=== PATIENT | male | born 1955 | race Caucasian/White ===

== ENCOUNTER 2019-10-19 13:35 | Emergency (ER) | payer MEDICARE, MEDICAID ==
[~2019-10-19] VITALS: Ht 182.9 cm; Wt 74.8 kg
--- NOTE | 2019-10-19 13:45 | NUR ---
PT BIB DAUGHTER C/O BACK PAIN X 1 WEEK. PT ENDORSES 5/10 PAIN. -NVD, -HEADACHE. PT AAOX4, VSS, BREATHING EVEN AND UNLABORED ON ROOM AIR W/ NAD. PT CONNECTED TO THE MONITOR AND POX.
[2019-10-19] MEDS ORDERED: LINA290C PO (13:55)
[2019-10-19] MEDS ORDERED: IBUP-1955 PO (13:55)
[2019-10-19] MEDS ORDERED: BISA5TAB10 PO (13:55)
[2019-10-19] MEDS ORDERED: SENN-168 PO (13:55)
[2019-10-19] MEDS ORDERED: ATOR40TA PO (13:55)
[2019-10-19] MEDS ORDERED: BACL10TA PO (13:55)
[2019-10-19] MEDS ORDERED: ASPI-1169 PO (13:55)
[2019-10-19] MEDS ORDERED: ICOS1CAP PO (13:55)
[2019-10-19] MEDS ORDERED: MECL-102 PO (13:55)
[2019-10-19] MEDS ORDERED: LOSA25TA27 PO (13:55)
[2019-10-19] MEDS ORDERED: DOCU-141 PO (13:55)
[2019-10-19] MEDS ORDERED: OMEP40CA13 PO (13:55)
[2019-10-19] MEDS ORDERED: MEMA28CA PO (13:55)
[2019-10-19] MEDS ORDERED: ESCI10TA PO (13:55)
--- NOTE | 2019-10-19 14:08 | NUR ---
DR YOUNG AT BEDSIDE FOR EVAL
--- NOTE | 2019-10-19 14:29 | NUR ---
IV LINE ESTABLISHED RAC 18G. BLOOD DRAWN AND SENT TO LAB
[2019-10-19 14:32] LABS: BASOPHILS % (AUTO) 0.6 % (0.0-2.0); EOSINOPHILS % (AUTO) 3.5 % (0.0-6.0); HEMATOCRIT 40 % (39-51); HEMOGLOBIN 13.7 g/dL (13.5-17.5); LYMPHOCYTES # (AUTO) 1.8 /CMM (0.8-4.8); LYMPHOCYTES % (AUTO) 28.2 % (20.0-44.0); MEAN CORPUSCULAR HGB CONC 34 g/dl (31.0-36.0); MEAN CORPUSCULAR VOLUME 100 fL (80-96); MONOCYTES # (AUTO) 0.5 /CMM (0.1-1.30); MONOCYTES % (AUTO) 7.5 % (2.0-12.0); NEUTROPHILS # (AUTO) 3.9 /CMM (1.8-8.9); NEUTROPHILS % (AUTO) 60.2 % (43.0-81.0); PLATELET COUNT (AUTO) 170 /CMM (150-450); RED BLOOD CELL COUNT(AUTO) 3.99 MIL/uL (4.5-6.0); WHITE BLOOD COUNT (AUTO) 6.5 K/uL (4.3-11.0)
[2019-10-19 14:41] LABS: CALCIUM, SERUM 9.1 mg/dL (8.5-10.1); CREATININE 0.7 mg/dL (0.6-1.3); POTASSIUM 4.2 mmol/L (3.5-5.1)
[2019-10-19 14:53] LABS: ALBUMIN 3.8 g/dL (3.4-5.0); BILIRUBIN,DIRECT 0.1 mg/dL (0.0-0.2); BILIRUBIN,TOTAL 0.3 mg/dL (0.2-1.0)
[2019-10-19] MEDS ORDERED: IV NS 0.9% 250 ML IV ONE (14:54)
[2019-10-19] MEDS ORDERED: CT SWABBABLE VALVE TRANS SET 1 EA INFUS.SET MC ONE (14:54)
[2019-10-19] MEDS ORDERED: IOHEXOL-300 100 ML VIAL IV ONE (14:54)
--- NOTE | 2019-10-19 14:57 | NUR ---
PT TAKEN TO CT
--- NOTE | 2019-10-19 16:30 | NUR ---
Patient discharged to home in stable condition. Written and verbal after care instructions given. Patient verbalizes understanding of instruction.
[2019-10-19 16:31] VITALS: BP 127/84
== END 2019-10-19 16:32 | disposition home or self-care (01) ==
LOC: ER 13:45
DX: K64.4 Residual hemorrhoidal skin tags (principal); M54.5 Low back pain; G89.29 Other chronic pain; I10 Essential (primary) hypertension; E78.5 Hyperlipidemia, unspecified; Z79.82 Long term (current) use of aspirin; Z79.899 Other long term (current) drug therapy
CPT/HCPCS: 36415; 72132; 74177; 80048; 80076; 83690; 85025; 85730; 99284; J7050; Q9967

== ENCOUNTER 2019-12-07 10:36 | Emergency (ER) | payer MEDICARE, MEDICAID ==
[~2019-12-07] VITALS: Ht 182.9 cm; Wt 73.9 kg
[~2019-12-07 10:36] MED LIST: ASPI-1169 PO; ATOR40TA PO; BACL10TA PO; BISA5TAB10 PO; DOCU-141 PO; ESCI10TA PO; IBUP-1955 PO; ICOS1CAP PO; LINA290C PO; LOSA25TA27 PO; MECL-159 PO; MEMA28CA PO; OMEP40CA13 PO; SENN-261 PO
--- NOTE | 2019-12-07 11:54 | NUR ---
IV LINE STARTED BLOOD DRAWN AND SENT TO LAB.
--- NOTE | 2019-12-07 11:59 | NUR ---
DR FERNANDES AT BEDSIDE FOR EVAL.
[2019-12-07 13:16] LABS: BASOPHILS % (AUTO) 0.2 % (0.0-2.0); EOSINOPHILS % (AUTO) 1.1 % (0.0-6.0); HEMATOCRIT 41 % (39-51); HEMOGLOBIN 14.1 g/dL (13.5-17.5); LYMPHOCYTES # (AUTO) 1.5 /CMM (0.8-4.8); LYMPHOCYTES % (AUTO) 17.2 % (20.0-44.0); MEAN CORPUSCULAR HGB CONC 34 g/dl (31.0-36.0); MEAN CORPUSCULAR VOLUME 99 fL (80-96); MONOCYTES # (AUTO) 0.6 /CMM (0.1-1.30); MONOCYTES % (AUTO) 6.9 % (2.0-12.0); NEUTROPHILS # (AUTO) 6.6 /CMM (1.8-8.9); NEUTROPHILS % (AUTO) 74.6 % (43.0-81.0); PLATELET COUNT (AUTO) 149 /CMM (150-450); RED BLOOD CELL COUNT(AUTO) 4.17 MIL/uL (4.5-6.0); WHITE BLOOD COUNT (AUTO) 8.9 K/uL (4.3-11.0)
[2019-12-07 13:19] LABS: CREATININE 0.9 mg/dL (0.6-1.3)
[2019-12-07] MEDS ORDERED: IV NS 0.9% 250 ML IV ONE (13:34)
[2019-12-07] MEDS ORDERED: CT SWABBABLE VALVE TRANS SET 1 EA INFUS.SET MC ONE (13:34)
[2019-12-07] MEDS ORDERED: IOHEXOL-300 100 ML VIAL IV ONE (13:34)
--- NOTE | 2019-12-07 13:36 | NUR ---
PT TO RADIOLOGY FOR ABDOMINAL CT SCAN VIA [facility].
--- NOTE | 2019-12-07 15:29 | NUR ---
Patient discharged to home in stable condition. Written and verbal after care instructions given. Patient verbalizes understanding of instruction.IV removed. Catheter intact and site benign. Pressure and 4x4 applied to site. No bleeding noted.
[2019-12-07 15:30] VITALS: BP 136/84
== END 2019-12-07 15:30 | disposition home or self-care (01) ==
LOC: ER 10:40
DX: K62.89 Other specified diseases of anus and rectum (principal); I10 Essential (primary) hypertension; E78.5 Hyperlipidemia, unspecified; Z79.899 Other long term (current) drug therapy; Z79.82 Long term (current) use of aspirin
CPT/HCPCS: 36415; 74177; 80048; 85025; 99284; J7050; Q9967

== ENCOUNTER 2021-10-08 09:08 | Inpatient (IN) | payer MEDICARE, OTHER ==
[~2021-10-08] VITALS: Ht 172.7 cm; Wt 71.7 kg
[~2021-10-08 09:08] MED LIST changes: -OMEP40CA13 PO; +OMEP40CA21 PO
--- NOTE | 2021-10-08 09:08 | NUR ---
PT BIB SON C/O R FACIAL NUMBNESS AND SLURRING OF SPEECH STARTED 2 DAYS AGO. PT IS AAOX4, NOT IN RESPIRATORY DISTRESS, HOOKED TO RETAIL CUSTOMER SERVICE REPRESENTATIVE, KEPT RESTED AND COMFORTABLE. WILL CONTINUE TO MONITOR.
--- NOTE | 2021-10-08 09:27 | NUR ---
IV LINE ESTABLISHED BLOOD DRAWN AND SENT TO LAB.
--- NOTE | 2021-10-08 09:37 | NUR ---
PT IS WHEELED TO CT SCAN.
[2021-10-08 09:45] LABS: BASOPHILS % (AUTO) 0.6 % (0.0-2.0); EOSINOPHILS % (AUTO) 5.1 % (0.0-6.0); HEMATOCRIT 42 % (39-51); HEMOGLOBIN 14.5 g/dL (13.5-17.5); LYMPHOCYTES # (AUTO) 1.8 K/uL (0.8-4.8); LYMPHOCYTES % (AUTO) 36.5 % (20.0-44.0); MEAN CORPUSCULAR HGB CONC 34 g/dl (31.0-36.0); MEAN CORPUSCULAR VOLUME 102 fL (80-96); MONOCYTES # (AUTO) 0.4 K/uL (0.1-1.30); NEUTROPHILS # (AUTO) 2.4 K/uL (1.8-8.9); NEUTROPHILS % (AUTO) 48.8 % (43.0-81.0); PLATELET COUNT (AUTO) 159 K/uL (150-450); RED BLOOD CELL COUNT(AUTO) 4.15 MIL/uL (4.5-6.0); WHITE BLOOD COUNT (AUTO) 4.9 K/uL (4.3-11.0)
--- NOTE | 2021-10-08 09:48 | NUR ---
COVID SWAB DONE AND SENT TO LAB
[2021-10-08] MEDS ORDERED: AMLO-213 PO (10:14)
[2021-10-08] MEDS ORDERED: LOSA1TAB36 PO (10:14)
[2021-10-08] MEDS ORDERED: METO25TA4 PO (10:14)
--- NOTE | 2021-10-08 10:21 | NUR ---
CALLED NURSING NIRANJAN EDWARDS PT BED. WAS NOTIFIED WE WILL BE CALLED LATER WITH TELE BED.
[2021-10-08 10:22] LABS: CALCIUM, SERUM 9.1 mg/dL (8.5-10.1); CARBON DIOXIDE 29 mmol/L (21-32); CHLORIDE 104 mmol/L (98-107); CREATININE 0.8 mg/dL (0.6-1.3); GLUCOSE 113 mg/dL (74-106); POTASSIUM 3.8 mmol/L (3.5-5.1); SODIUM SERUM 143 mmol/L (136-145); UREA NITROGEN, BLOOD 13 mg/dL (7-18)
[2021-10-08 10:28] LABS: ALANINE AMINOTRANSFERASE 32 U/L (12-78); ALBUMIN 3.9 g/dL (3.4-5.0); ALKALINE PHOSPHATASE 66 U/L (46-116); ASPARTATE AMINOTRANSFERASE 28 U/L (15-37); BILIRUBIN,DIRECT 0.1 mg/dL (0.0-0.2); BILIRUBIN,TOTAL 0.5 mg/dL (0.2-1.0); TOTAL PROTEIN, SERUM 7.4 g/dL (6.4-8.2)
[2021-10-08] MEDS ORDERED: ASPIRIN 81 MG TAB.CHEW PO ONE (10:30)
--- NOTE | 2021-10-08 10:30 | NUR ---
PER PT SON PT TOOK ASPIRIN LAST NIGHT.
--- NOTE | 2021-10-08 10:31 | NUR ---
PAGED [facility].
[2021-10-08 10:36] LABS: THYROID STIMULATING HORMONE 2.521 uIU/mL (0.358-3.74)
--- NOTE | 2021-10-08 11:58 | NUR ---
REPORT GIVEN TO CHARLENE COLLINS.
[2021-10-08 13:30] VITALS: BP 143/81
--- NOTE | 2021-10-08 13:30 | NUR ---
FREELANCE COPYWRITER NOTE PT IN ROOM. ORIENTED TO HOSPITAL AND CALL LIGHT GIVEN. EDUCATION GIVEN. A/O X3 AND ICELANDIC SPEAKING. NO COMPLAINT OF PAIN OR NAUSEA. FARMER VEGETABLE PRESENT. NO EDEMA PRESENT.SELF AMBULATORY WITH BATHROOM PRIVILEGES. IV PRESENT ON R FA 20 G AND FLUSHES WELL. SKIN INTACT. LABS AND ORDERS REVIEWED. SAFETY MEASURES IN PLACE. SIDE RAILS RAISED. BED LOWERED. CALL LIGHT WITHIN REACH. WILL CONTINUE TO MONITOR.
[2021-10-08 16:00] VITALS: BP 124/65
--- NOTE | 2021-10-08 18:38 | NUR ---
RN CLOSING NOTE PT RESTING IN BED ASLEEP. AROUSES TO NAME. A/O X3 AND GHANAIAN SPEAKING. NO COMPLAINT OF PAIN OR NAUSEA. PROVIDER NETWORK MANAGER PRESENT. NO EDEMA PRESENT.SELF AMBULATORY WITH BATHROOM PRIVILEGES. IV PRESENT ON R FA 20 G AND FLUSHES WELL. SKIN INTACT. LABS AND ORDERS REVIEWED. SAFETY MEASURES IN PLACE. SIDE RAILS RAISED. BED LOWERED. CALL LIGHT WITHIN REACH. WILL CONTINUE TO MONITOR.
[2021-10-08 20:10] VITALS: BP 169/74
[2021-10-08] MEDS ORDERED: hydrALAZINE HCL 25 MG TABLET PO PRN (20:30)
--- NOTE | 2021-10-08 20:30 | NUR ---
MERRY GO ROUND ATTENDANT NOTES PATIENT BP 169/74 ON RECHECK. MESSAGED DOCTOR MARTA DILL AND SHE ORDERED HYDRALAZINE 25MG PO Q8 FOR SBP OVER 160. READ BACK ORDER. DOCTOR CONFIRMED. WILL FOLLOW THROUGH ORDER.
--- NOTE | 2021-10-08 21:08 | NUR ---
HOME ADVISOR NOTE PATIENT REQUESTING SLEEPING MEDICATION. MESSAGED DOCTOR ANIYAH. DOCTOR ORDERED AMBIEN 5MG PO HS PRN. READBACK ORDER. WILL FOLLOW THROUGH ORDER.
[2021-10-08] MEDS: ZOLPIDEM TARTRATE 5 MG TABLET PO PRN (21:29)
[2021-10-08] MEDS ORDERED: ZOLPIDEM TARTRATE 5 MG TABLET PO PRN (21:30)
[2021-10-08 23:48] VITALS: BP 128/55
--- NOTE | 2021-10-09 | NUR ---
ARTIFICIAL FLOWERS STARCHER NOTE PATIENT BP WENT DOWN AT 151/76 AND HR-64 AFTER PO APRESOLINE. WILL CONTINUE TO MONITOR.
[2021-10-09 04:05] VITALS: BP 134/67
--- NOTE | 2021-10-09 07:22 | NUR ---
MOOSE HUNTER CLOSING PATIENT IN BED. A/OX4. AMBULATORY. NO S/S OF APPARENT DISTRESS ON ROOM AIR. DENIES PAIN. TELE MONITOR READING NSR. ALL NEEDS ATTENDED. ALL SCHEDULED MEDICATION ADMINISTERED. NO IV FLUIDS RUNNING AT THIS TIME. NIHSS SCORE=0 ON MY SHIFT. SAFETY KEPT IN PLACE THE WHOLE SHIFT. REPORT GIVEN TO DENNIS FOR THE CONTINUITY OF CARE.
--- NOTE | 2021-10-09 08:00 | NUR ---
RN OPENING NOTE A/O X3 AND SWEDISH SPEAKING. NO COMPLAINT OF PAIN OR NAUSEA. EDUCATION MANAGER PRESENT. NO EDEMA PRESENT.SELF AMBULATORY WITH BATHROOM PRIVILEGES. IV PRESENT ON R FA 20 G AND FLUSHES WELL. SKIN INTACT. LABS AND ORDERS REVIEWED. SAFETY MEASURES IN PLACE. SIDE RAILS RAISED. BED LOWERED. CALL LIGHT WITHIN REACH. WILL CONTINUE TO MONITOR.
[2021-10-09 08:53] VITALS: BP 144/84
--- NOTE | 2021-10-09 09:27 | NUR ---
RN NOTE PT TOOK OFF LEADS, STATING THAT HE IS OKAY. EDUCATED PT ON CARDIAC MONITORING AND ITS IMPORTANCE. PT STILL REFUSED LEADS. WILL CONTINUE TO MONITOR.
[2021-10-09] MEDS ORDERED: BISACODYL (5 MG) 5 MG TABLET.DR PO PRN (15:30)
[2021-10-09] MEDS ORDERED: MECLIZINE HCL 25 MG TABLET PO PRN (15:30)
[2021-10-09] MEDS ORDERED: BACLOFEN (10 MG) 10 MG TABLET PO PRN (15:30)
[2021-10-09 16:00] VITALS: BP 125/75
[2021-10-09] MEDS: MEMANTINE HCL 5 MG TABLET PO SCH (16:23)
[2021-10-09] MEDS: DOCUSATE SODIUM 100 MG CAPSULE PO SCH (16:23)
[2021-10-09] MEDS: ATORVASTATIN 10 MG TABLET PO SCH ×2 (16:23→21:59)
[2021-10-09] MEDS: ASPIRIN EC 81 MG TABLET.DR PO SCH (16:25)
[2021-10-09] MEDS: CLOPIDOGREL BISULFATE 75 MG TABLET PO SCH (16:25)
--- NOTE | 2021-10-09 19:49 | NUR ---
MS RN OPENING PATIENT WAS IN THE ROOM, A/OX4. AMBULATORY. NO S/S OF APPARENT DISTRESS ON ROOM AIR. DENIES PAIN AT THIS TIME. PATIENT ABLE TO MAKE NEEDS KNOWN. PATIENT SPECIFICALLY REQUESTED NOT BE BOTHERED AT MIDNIGHT. SAFETY IN PLACE. WILL CONTINUE WITH PLAN OF CARE.
[2021-10-09 20:00] VITALS: BP 132/70
[2021-10-09] MEDS ORDERED: ATORVASTATIN 40 MG TABLET PO SCH (22:00)
[2021-10-09] MEDS ORDERED: SENNOSIDES 8.6 MG TABLET PO SCH (22:00)
[2021-10-09] MEDS: ZOLPIDEM TARTRATE 5 MG TABLET PO PRN (22:00)
--- NOTE | 2021-10-10 06:35 | NUR ---
MS RN NOTE PATIENT IN BED. A/OX4. AMBULATING WITH STEADY GAIT. NO S/S OF APPARENT DISTRESS. NO C/O PAIN AT THIS TIME. PATIENT ABLE TO MAKE NEEDS KNOWN. ALL NEEDS ATTENDED. ALL SCHEDULED MEDICATION ADMINISTERED. NIHSS SCORE= 0. NO SIGNIFICANT CHANGE SINCE LAST ENDORSEMENT. WILL ENDORSE TO MORNING SHIFT RN FOR CONTINUITY OF CARE.
--- NOTE | 2021-10-10 07:30 | NUR ---
RN OPENING NOTE RECEIVED PATIENT ASLEEP IN BED, EASY TO AROUSE. ALERT AND ORIENTED X 4, GUINEAN SPEAKING. NO S/SX OF DISTRESS NOTED. NO SOB. BREATHING IS EVEN AND UNLABORED. IV ACCESS RAC#20 PATENT AND INTACT. SAFETY PRECAUTIONS IN PLACE; BED IN LOW POSITION AND LOCKED, SIDE RAILS UP X2, CALL LIGHT WITHIN REACH. WILL CONTINUE TO MONITOR PATIENT.
[2021-10-10 08:00] VITALS: BP 142/74
[2021-10-10] MEDS: MEMANTINE HCL 5 MG TABLET PO SCH (08:31)
[2021-10-10] MEDS: DOCUSATE SODIUM 100 MG CAPSULE PO SCH (08:31)
[2021-10-10] MEDS: CLOPIDOGREL BISULFATE 75 MG TABLET PO SCH (08:32)
[2021-10-10 08:33] VITALS: BP 142/74
[2021-10-10] MEDS: ASPIRIN EC 81 MG TABLET.DR PO SCH (08:33)
[2021-10-10] MEDS ORDERED: AMLODIPINE BESYLATE 10 MG TABLET PO SCH (09:00)
[2021-10-10] MEDS ORDERED: ESCITALOPRAM OXALATE (10 MG) 10 MG TABLET PO SCH (09:00)
[2021-10-10] MEDS ORDERED: ASPIRIN 81 MG TAB.CHEW PO SCH (09:00)
[2021-10-10] MEDS ORDERED: METOPROLOL SUCCINATE 25 MG TAB.SR.24H PO SCH (09:00)
[2021-10-10] MEDS ORDERED: LOSARTAN/HCTZ 50-12.5MG/ 1 EA TABLET PO SCH (09:00)
--- NOTE | 2021-10-10 09:16 | NUR ---
MS RN NOTE PT IS INSISTING ON REMOVING IV ACCESS AND INSISTS ON GOING HOME. IV ACCESS REMOVED. SPOKE WITH DAUGHTER ANKUSH AND EXPLAINED THE DOCTOR WILL BE IN TODAY TO SPEAK TO PATIENT, HOWEVER TIME IS UNKNOWN. SENT MESSAGE TO DR. GUS KING. CHARGE NURSE, HOMERO MADE AWARE.
--- NOTE | 2021-10-10 10:20 | NUR ---
MS RN NOTE PATIENT LEFT AMA AT THIS TIME. EXPLAINED TO PATIENT THE RISKS VS BENEFITS OF LEAVING AMA AND VERBALIZED UNDERSTANDING. PT SIGNED AMA FORM. DR. GUS KING AND CHARGE NURSE, HOMERO NOTIFIED AND AWARE. IV ACCESS AND ID BAND REMOVED PRIOR TO LEAVING UNIT.
[2021-10-10] MEDS ORDERED: CLOP75TA15 PO (15:19)
== END 2021-10-10 10:15 | disposition left against medical advice (07) | DRG 74 ==
LOC: ER 09:11 → TELE 12:10 → MED 10-09 18:19
PROVIDERS: ADMIT Nurse Practitioner Acute Care; ATTEND Nurse Practitioner Acute Care
DX: G51.0 Bell's palsy (principal); E78.5 Hyperlipidemia, unspecified; F32.A Depression, unspecified; F02.80 Dementia in other diseases classified elsewhere, unspecified severity, without behavioral disturbance, psychotic disturbance, mood disturbance, and anxiety; G30.9 Alzheimer's disease, unspecified; K59.09 Other constipation; I25.10 Atherosclerotic heart disease of native coronary artery without angina pectoris; Z79.899 Other long term (current) drug therapy; I10 Essential (primary) hypertension; F17.210 Nicotine dependence, cigarettes, uncomplicated; Z20.822 Contact with and (suspected) exposure to COVID-19; D75.89 Other specified diseases of blood and blood-forming organs; Z71.6 Tobacco abuse counseling; I51.7 Cardiomegaly
CPT/HCPCS: 36415; 70450-TC; 71045-TC; 80048-TC; 80076-TC; 82465-TC; 83880; 84443-TC; 84484-TC; 85025-TC; 87081-TC; C9803; G0378

== ENCOUNTER 2022-09-07 19:30 | Emergency (ER) | payer MEDICARE, OTHER ==
[~2022-09-07] VITALS: Ht 170.2 cm; Wt 72.6 kg
[~2022-09-07 19:30] MED LIST changes: +AMLO-213 PO; +CLOP75TA15 PO; -IBUP-1955 PO; -LINA290C PO; +LOSA1TAB36 PO; -LOSA25TA27 PO; +METO25TA4 PO; -OMEP40CA21 PO
--- NOTE | 2022-09-07 21:21 | NUR ---
BIB SON FOR C/P WORSENING R FLANK 9/10 PAIN SINCE YESTERDAY. PT HAD MILD R FLANK PAIN X7DAYS. - HEMATURIA OR DYSURIA. DENIES N/V/D HAD 1200 MOTRIN DELIVERY CREW MEMBER. PT A/OX4. TOLERATING R/A WELL WITH NO SOB. AMB WITH STEADY GAIT. SAFETY MEASURES IN PLACE.
--- NOTE | 2022-09-07 21:45 | NUR ---
URINE COLLECTED AND SENT TO LAB
--- NOTE | 2022-09-07 22:04 | NUR ---
R WRIST #20G S/L BLOOD COLLECTED AND SENT TO LAB
[2022-09-07] MEDS ORDERED: KETOROLAC TROMETHAMINE INJ 30 MG/ML VIAL IV ONE (22:30)
[2022-09-07] MEDS ORDERED: ONDANSETRON HCL/PF 4 MG/2 ML VIAL IVP ONE (22:30)
[2022-09-07] MEDS ORDERED: IV NS 0.9% 1,000 ML BAG IV ONE (22:30)
--- NOTE | 2022-09-07 22:31 | NUR ---
HEALTH FACILITIES SURVEYOR AT PT'S BEDSIDE
[2022-09-07] MEDS ORDERED: ONDANSETRON HCL/PF 4 MG/2 ML VIAL ONE (22:40)
[2022-09-07] MEDS ORDERED: KETOROLAC TROMETHAMINE 15 MG/ML VIAL ONE (22:40)
--- NOTE | 2022-09-07 22:46 | NUR ---
PT TAKEN TO CT VIA [facility]
[2022-09-07 22:56] LABS: BASOPHILS # (AUTO) 0.1 K/uL (0.0-0.2); BASOPHILS % (AUTO) 0.8 % (0.0-2.0); EOSINOPHILS % (AUTO) 3.2 % (0.0-6.0); HEMATOCRIT 40 % (39-51); HEMOGLOBIN 13.1 g/dL (13.5-17.5); LYMPHOCYTES # (AUTO) 1.4 K/uL (0.8-4.8); LYMPHOCYTES % (AUTO) 20.9 % (20.0-44.0); MEAN CORPUSCULAR HGB CONC 33 g/dl (31.0-36.0); MEAN CORPUSCULAR VOLUME 104 fL (80-96); MONOCYTES # (AUTO) 0.5 K/uL (0.1-1.30); MONOCYTES % (AUTO) 8.5 % (2.0-12.0); NEUTROPHILS # (AUTO) 4.3 K/uL (1.8-8.9); NEUTROPHILS % (AUTO) 66.6 % (43.0-81.0); PLATELET COUNT (AUTO) 154 K/uL (150-450); RED BLOOD CELL COUNT(AUTO) 3.82 MIL/uL (4.5-6.0); WHITE BLOOD COUNT (AUTO) 6.5 K/uL (4.3-11.0)
--- NOTE | 2022-09-07 23:04 | NUR ---
PT RETURNED TO ER BED [address]
[2022-09-07] MEDS ORDERED: MORPHINE SULFATE INJ 4 MG/ML DISP.SYRIN ONE (23:14)
[2022-09-07 23:15] LABS: ALANINE AMINOTRANSFERASE 45 U/L (12-78); ALBUMIN 3.9 g/dL (3.4-5.0); ALKALINE PHOSPHATASE 62 U/L (46-116); ASPARTATE AMINOTRANSFERASE 50 U/L (15-37); BILIRUBIN,DIRECT 0.2 mg/dL (0.0-0.2); BILIRUBIN,TOTAL 0.6 mg/dL (0.2-1.0); CARBON DIOXIDE 25 mmol/L (21-32); CHLORIDE 104 mmol/L (98-107); CREATININE 0.9 mg/dL (0.6-1.3); GLUCOSE 124 mg/dL (74-106); LIPASE 122 U/L (73-393); POTASSIUM 3.8 mmol/L (3.5-5.1); SODIUM SERUM 140 mmol/L (136-145); TOTAL PROTEIN, SERUM 7.3 g/dL (6.4-8.2); UREA NITROGEN, BLOOD 18 mg/dL (7-18)
[2022-09-07] MEDS ORDERED: MORPHINE SULFATE INJ 2 MG/ML DISP.SYRIN IV ONE (23:30)
--- NOTE | 2022-09-07 23:40 | NUR ---
EMT AT PT'S BEDSIDE FOR EKG
[2022-09-07 23:46] LABS: BILIRUBIN,URINE NEGATIVE (NEGATIVE); COLOR,URINE YELLOW (YELLOW); LEUKOCYTE ESTERASE ,URINE NEGATIVE (NEGATIVE); NITRITE, URINE NEGATIVE (NEGATIVE); PROTEIN,URINE TRACE mg/dl (NEGATIVE); UGLUCOSE NEGATIVE (NEGATIVE); UROBILINOGEN,URINE 0.2 EU/dL (0.2)
[2022-09-08] LABS: BACTERIA,URINE Rare /HPF (None Seen); RBC,URINE 0-2 /HPF (0-2); SQUAMOUS EPITHELIAL CELL,UR Rare /HPF (None Seen); WBC,URINE 0-2 /HPF (0-3)
--- NOTE | 2022-09-08 00:07 | NUR ---
CAMPUS AIDE AT PT'S BEDSIDE
--- NOTE | 2022-09-08 00:10 | NUR ---
PT TAKEN TO CT VIA [facility]
--- NOTE | 2022-09-08 01:19 | NUR ---
CALLED [facility] TO F/U FOR CT CHEST RESULT; ETA FOR REPORT IS 1 HOUR
--- NOTE | 2022-09-08 02:20 | NUR ---
Patient discharged to home in stable condition. Written and verbal after care instructions given. Patient verbalizes understanding of instruction. IV removed. Catheter intact and site benign. Pressure and 4x4 applied to site. No bleeding noted. pt ambulatory with a steady gait
[2022-09-08 02:22] VITALS: BP 124/76
== END 2022-09-08 02:22 | disposition home or self-care (01) ==
LOC: ER 19:41
DX: R10.9 Unspecified abdominal pain (principal); I10 Essential (primary) hypertension; E78.5 Hyperlipidemia, unspecified; F32.A Depression, unspecified; Z87.442 Personal history of urinary calculi; Z79.899 Other long term (current) drug therapy
CPT/HCPCS: 99285; 71250; 96374; 71045; 96375; 96361; 93005; 74176; 85025; 80048; 83690; 80076; 81001; 36415 ×2; 84484 ×2; 85730; J2270; J2405; J7030; J1885

== ENCOUNTER 2022-12-08 18:42 | Inpatient (IN) | payer MEDICARE, OTHER ==
[~2022-12-08] VITALS: Ht 177.8 cm; Wt 82.6 kg
--- NOTE | 2022-12-08 18:56 | NUR ---
DR SUERO AT BEDSIDE
--- NOTE | 2022-12-08 19:14 | NUR ---
rapid covid done and sent to lab
--- NOTE | 2022-12-08 19:22 | NUR ---
PORTRAIT STUDIO PHOTOGRAPHER AT PT'S BEDSIDE
[2022-12-08 20:04] LABS: ALANINE AMINOTRANSFERASE 25 U/L (12-78); ALBUMIN 3.3 g/dL (3.4-5.0); ALKALINE PHOSPHATASE 44 U/L (46-116); ASPARTATE AMINOTRANSFERASE 22 U/L (15-37); BILIRUBIN,DIRECT 0.1 mg/dL (0.0-0.2); BILIRUBIN,TOTAL 0.4 mg/dL (0.2-1.0); CALCIUM, SERUM 8.8 mg/dL (8.5-10.1); CARBON DIOXIDE 25 mmol/L (21-32); CHLORIDE 106 mmol/L (98-107); CREATININE 1.4 mg/dL (0.6-1.3); GLUCOSE 177 mg/dL (74-106); POTASSIUM 3.7 mmol/L (3.5-5.1); SODIUM SERUM 140 mmol/L (136-145); TOTAL PROTEIN, SERUM 6.3 g/dL (6.4-8.2); UREA NITROGEN, BLOOD 16 mg/dL (7-18)
[2022-12-08 20:33] LABS: HEMATOCRIT 39 % (39-51); HEMOGLOBIN 12.7 g/dL (13.5-17.5); LYMPHOCYTES # (AUTO) 1.5 K/uL (0.8-4.8); LYMPHOCYTES % (AUTO) 32.4 % (20.0-44.0); MEAN CORPUSCULAR HGB CONC 33 g/dl (31.0-36.0); MEAN CORPUSCULAR VOLUME 101 fL (80-96); MONOCYTES # (AUTO) 0.4 K/uL (0.1-1.30); MONOCYTES % (AUTO) 8.4 % (2.0-12.0); NEUTROPHILS # (AUTO) 2.4 K/uL (1.8-8.9); NEUTROPHILS % (AUTO) 51.2 % (43.0-81.0); PLATELET COUNT (AUTO) 193 K/uL (150-450); RED BLOOD CELL COUNT(AUTO) 3.84 MIL/uL (4.5-6.0); WHITE BLOOD COUNT (AUTO) 4.7 K/uL (4.3-11.0)
[2022-12-08] MEDS ORDERED: ACETAMINOPHEN ES 500 MG TABLET PO ONE ×2 (21:00)
--- NOTE | 2022-12-08 21:03 | NUR ---
[facility] PAGED
[2022-12-08] MEDS ORDERED: ACETAMINOPHEN ES 500 MG TABLET ONE (21:15)
--- NOTE | 2022-12-08 22:57 | NUR ---
REPORT GIVEN TO CHARLENE JORGE
[2022-12-08 23:00] VITALS: BP 140/69
[2022-12-08] MEDS ORDERED: IV LR 1000 ML 1,000 ML IV PRN (23:00)
[2022-12-08] MEDS ORDERED: Z GUARD REMEDY 4 OZ OINT TP PRN (23:00)
[2022-12-08] MEDS ORDERED: ACETAMINOPHEN 325 MG TABLET PO PRN (23:00)
[2022-12-08] MEDS ORDERED: ONDANSETRON HCL/PF 4 MG/2 ML VIAL IVP PRN (23:00)
--- NOTE | 2022-12-08 23:22 | NUR ---
PATIENT TRANSFERRED UNDER ACLS
--- NOTE | 2022-12-08 23:30 | NUR ---
SNUFF CONTAINER INSPECTORELECTRO MECHANIC NOTES: RECEIVED PATIENT AWAKE IN BED TRANSFER TO UNIT VIA GURNEY, NO COMPLAIN OF PAIN AND DISCOMFORT AT THIS TIME, ON ROOM AIR SATURATING WELL, PATIENT IS A/OX3-4 ABLE TO MAKE NEEDS KNOWN, CROATIAN SPEAKING, SKIN ASSESSMENT DONE, NO SKIN ISSUES WAS OBSERVED, INVENTORIES DONE AND SIGNED, ON TELE MONITOR- SR- 68, V/S ARE WITHIN NORMAL RANGE, PATIENT PLACED ON BED COMFORTABLY, BED IN LOW POSITION CALL LIGHTS WITHIN REACH, REMIND TO USE CALL LIGHTS WHEN NEEDED ASSISTANCE, KEPT CLEAN AND DRY ALL NEEDS WILL CONTINUE TO MONITOR.
[2022-12-09 04:00] VITALS: BP 99/58
[2022-12-09 06:19] LABS: BASOPHILS % (AUTO) 1.2 % (0.0-2.0); EOSINOPHILS % (AUTO) 8.4 % (0.0-6.0); HEMATOCRIT 38 % (39-51); HEMOGLOBIN 12.4 g/dL (13.5-17.5); LYMPHOCYTES # (AUTO) 1.3 K/uL (0.8-4.8); LYMPHOCYTES % (AUTO) 32.2 % (20.0-44.0); MEAN CORPUSCULAR HGB CONC 33 g/dl (31.0-36.0); MEAN CORPUSCULAR VOLUME 99 fL (80-96); MONOCYTES # (AUTO) 0.5 K/uL (0.1-1.30); MONOCYTES % (AUTO) 10.9 % (2.0-12.0); NEUTROPHILS % (AUTO) 47.3 % (43.0-81.0); PLATELET COUNT (AUTO) 194 K/uL (150-450); RED BLOOD CELL COUNT(AUTO) 3.82 MIL/uL (4.5-6.0); WHITE BLOOD COUNT (AUTO) 4.2 K/uL (4.3-11.0)
[2022-12-09 07:00] VITALS: BP 142/67
[2022-12-09 07:05] LABS: CALCIUM, SERUM 8.7 mg/dL (8.5-10.1); CREATININE 0.9 mg/dL (0.6-1.3); MAGNESIUM 1.7 mg/dL (1.8-2.4); PHOSPHORUS 3.7 mg/dL (2.5-4.9); POTASSIUM 3.5 mmol/L (3.5-5.1)
[2022-12-09 07:09] LABS: THYROID STIMULATING HORMONE 2.436 uIU/mL (0.358-3.74)
--- NOTE | 2022-12-09 07:31 | NUR ---
CORRECTIONAL OFFICER CLOSING NOTES: RECEIVED PATIENT AWAKE IN BED, BED IN LOW POSITION CALL LIGHTS WITHIN REACH, NO COMPLAIN OF PAIN AND DISCOMFORT AT THIS TIME, ON ROOM AIR SATURATING WELL, ON TELE MONITOR- S-73, PATIENT IS MONITORED FOR FALL DUE TO SYNCOPE AMBULATORY WITH ASSIST TO BATHROO, PATIENT KEPT CLEAN AND DRY ALL NEEDS MET ENDORSE TO INCOMING SHIFT.
[2022-12-09] MEDS: PANTOPRAZOLE 40 MG TABLET.DR PO SCH (08:15)
[2022-12-09] MEDS: HEPARIN SODIUM, PORCINE 5000 UNITS/1 ML VIAL SQ SCH ×2 (08:16→20:44)
--- NOTE | 2022-12-09 08:52 | NUR ---
RN OPENING NOTES RECEIVED PATIENT FROM NIGHTSHIFT NURSE SLEEPING IN BED. NO COMPLAIN OF PAIN AND DISCOMFORT AT THIS TIME, JUST SLEEPY. ON ROOM AIR SATURATING WELL, PATIENT IS A/OX3-4 ABLE TO MAKE NEEDS KNOWN, MONTENEGRIN SPEAKING. ON TELE MONITOR- SR- 73, V/S ARE WITHIN NORMAL RANGE. HOME MEDS NOT COMPLETED. DAUGHTER CAMILLE CALLED TO CHECK ON MEDICINE. AWAITING RESPONSE. PATIENT PLACED ON BED COMFORTABLY, BED IN LOW POSITION CALL LIGHTS WITHIN REACH, REMIND TO USE CALL LIGHTS WHEN NEEDED ASSISTANCE, KEPT CLEAN AND DRY ALL NEEDS WILL CONTINUE TO MONITOR THROUGHOUT THE DAY
--- NOTE | 2022-12-09 08:57 | NUR ---
RN NOTE CALLED THE DAUGHTER CAMILLE ([phone]) A FOLLOW UP FOR THE MEDICATION LIST. STATES SHE HAS YET TO GET IT AND WILL IN A FEW HOURS. WILL AWAIT RESPONSE
[2022-12-09] MEDS ORDERED: ASPIRIN 81 MG TAB.CHEW PO SCH (09:00)
[2022-12-09] MEDS ORDERED: MAGNESIUM OXIDE 400 MG TABLET PO ONE (10:00)
[2022-12-09] MEDS ORDERED: TRAZ-252 PO (10:24)
[2022-12-09] MEDS ORDERED: CHLO10CA6 PO (10:24)
[2022-12-09] MEDS ORDERED: MECL-185 PO (10:24)
--- NOTE | 2022-12-09 11:47 | NUR ---
RN NOTE SPOKE TO DAUGHTER. SAID SHE SENT (TEXTED) PICTURES OF HOME MEDICINE TO 'PEGGY' FROM [facility] BECAUSE HE TEXTED ASKING. THE NUMBER SHE SENT IT TO IS . WILL FOLLOW UP IN ORDER TO FIND OUT MED LIST.
--- NOTE | 2022-12-09 14:48 | NUR ---
RN NOTE CONTACTED DAUGHTER AGAIN FOR HOME MED LIST. ASKED FOR PICTURES TO BE TEXTED TO CHARGE NURSE PHONE A ONE TIME THING. AWAITING PICTURES IN ORDER FOR MED RECONCILIATION
[2022-12-09 16:00] VITALS: BP 102/60
--- NOTE | 2022-12-09 16:45 | NUR ---
RN NOTE LET TENZIN MAYS KNOW ABOUT uPDATED MED RECON LIST. GOT A RESPONSE SAYING SHE IS NOT THE ATTENDING FOR HIM. SENT TEXT TO DR GUERRIER TO UPDATE ABOUT THE NEW MED RECON. AWAITING RESPONSE
--- NOTE | 2022-12-09 19:18 | NUR ---
RN CLOSING NOTES: PATIENT AWAKE IN BED, RESTLESS. KEEPS WALKING BACK AND FORTH TO NURSING STATION ASKING ABOUT PHONE. BED IN LOW POSITION CALL LIGHTS WITHIN REACH, NO COMPLAIN OF PAIN AND DISCOMFORT AT THIS TIME, ON ROOM AIR SATURATING WELL, ON TELE MONITOR- S-87. DAUGHTER WANTS UPDATES ([phone]). MED [facility] UPDATED AND DR GUERRIER ISAWARE. AWAITING NEW ORDERS. PATIENT IS MONITORED FOR FALL DUE TO SYNCOPE AMBULATORY WITH ASSIST TO BATHROO, PATIENT KEPT CLEAN AND DRY. ENDORSED TO CALENDER ROLL PRESS OPERATOR FOR CONTINUATION OF CARE.
--- NOTE | 2022-12-09 19:30 | NUR ---
PLANT CONTROLLER OPENING NOTES: RECEIVED PATIENT AWAKE IN BED, PATIENT DARÍO/O TIMES 3 WITH EPISODES OF CONFUSION. REORIENT THE PATIENT.NO PAIN AND DISCOMFORT NOTED AT THIS TIME, ON ROOM AIR TOLERATING WELL, ON TELE MONITOR- READING SR 73, IV ACCESS ON THE LAC G # 20 INTACT. THE SON CALLED AND VISITED THE PATIENT. GAVE EPIC NUMBER TO SPEAK WITH THE ASSIGNED DOCTOR TOMORROW MORNING. PATIENT ABLE TO AMBULATE. FALL PRECAUTION MAINTAINED. ALL SAFETY MEASURES IN PLACE. BED LOCKED IN THE LOWEST POSITION. CALL LIGHT AND TABLE IN EASY REACH. SIDE RAILS UP TIMES 2. PATIENT KEPT CLEAN AND DRY ALL NEEDS MET. WILL CONTINUE TO MONITOR CLOSELY.
[2022-12-09 20:16] VITALS: BP 122/75
[2022-12-09 23:49] VITALS: BP 152/70
[2022-12-10 04:25] VITALS: BP 127/73
[2022-12-10 04:56] LABS: BILIRUBIN,URINE NEGATIVE (NEGATIVE); COLOR,URINE YELLOW (YELLOW); LEUKOCYTE ESTERASE ,URINE NEGATIVE (NEGATIVE); NITRITE, URINE NEGATIVE (NEGATIVE); PROTEIN,URINE NEGATIVE (NEGATIVE); UGLUCOSE NEGATIVE (NEGATIVE); UROBILINOGEN,URINE 0.2 EU/dL (0.2)
[2022-12-10 05:45] LABS: BASOPHILS % (AUTO) 0.9 % (0.0-2.0); EOSINOPHILS % (AUTO) 6.5 % (0.0-6.0); HEMATOCRIT 38 % (39-51); HEMOGLOBIN 12.5 g/dL (13.5-17.5); LYMPHOCYTES # (AUTO) 1.3 K/uL (0.8-4.8); LYMPHOCYTES % (AUTO) 26.9 % (20.0-44.0); MEAN CORPUSCULAR HGB CONC 33 g/dl (31.0-36.0); MEAN CORPUSCULAR VOLUME 99 fL (80-96); MONOCYTES # (AUTO) 0.4 K/uL (0.1-1.30); MONOCYTES % (AUTO) 7.8 % (2.0-12.0); NEUTROPHILS # (AUTO) 2.8 K/uL (1.8-8.9); NEUTROPHILS % (AUTO) 57.9 % (43.0-81.0); PLATELET COUNT (AUTO) 185 K/uL (150-450); RED BLOOD CELL COUNT(AUTO) 3.83 MIL/uL (4.5-6.0); WHITE BLOOD COUNT (AUTO) 4.8 K/uL (4.3-11.0)
[2022-12-10 06:12] LABS: POTASSIUM 3.7 mmol/L (3.5-5.1)
[2022-12-10] MEDS: PANTOPRAZOLE 40 MG TABLET.DR PO SCH (07:30)
--- NOTE | 2022-12-10 07:30 | NUR ---
MEDICINAL CHEMIST CLOSING NOTES: PATIENT AWAKE IN BED, PATIENT DARÍO/O TIMES 3 WITH EPISODES OF CONFUSION. REORIENT THE PATIENT.NO PAIN AND DISCOMFORT NOTED AT THIS TIME, ON ROOM AIR TOLERATING WELL, ON TELE MONITOR- READING SR , IV ACCESS ON THE LAC G # 20 INTACT. PATIENT ABLE TO AMBULATE. FALL PRECAUTION MAINTAINED. ALL SAFETY MEASURES IN PLACE. BED LOCKED IN THE LOWEST POSITION. CALL LIGHT AND TABLE IN EASY REACH. SIDE RAILS UP TIMES 2. PATIENT KEPT CLEAN AND DRY ALL NEEDS MET. WILL ENDORSE FOR MYRNA.
--- NOTE | 2022-12-10 07:30 | NUR ---
RN OPENING NOTES RECEIVED PATIENT IN BED AWAKE . NO COMPLAIN OF PAIN AND DISCOMFORT AT THIS TIME, . ON ROOM AIR SATURATING WELL,WITH NO SOB OR DISTRESS NOTED , PATIENT IS A/OX3-4 ABLE TO MAKE NEEDS KNOWN, MACANESE SPEAKING. ON TELE MONITOR- SR- 70. . SAFETY MEASURES PROVIDED , TRIED TO GET UP BY HIMSELF WITH CONFUSION AND FORGETFULNESS , BED IN LOW POSITION CALL LIGHTS WITHIN REACH, REMIND TO USE CALL LIGHTS WHEN NEEDED ASSISTANCE, KEPT CLEAN AND DRY ALL NEEDS WILL CONTINUE TO MONITOR THROUGHOUT THE DAY
[2022-12-10 08:00] VITALS: BP 128/62
--- NOTE | 2022-12-10 10:05 | NUR ---
RN RASHIA NOTES PATIENT SON WANTS THE DAD TO BE DISCHARGE RIGHT AWAY AND EXPLAINED THAT WE DONT HAVE ORDER YET UNLESS IT AGAINST MEDICAL ADVICE AND SON AGREED , PATIENT IS ALERT 2 WITH CONFUSION AND FORGETFULNESS , SON SIGNED THE AMA FORM AND BELONGINGS FORM WAS SIGNED ALSO . ALL BELONGING WERE TAKEN BY PATIENT , NO SOB OR DISTRESS NOTED AND NO C/O OF PAIN AND DISCOMFORT NOTED AND PATIENT TELE MONITOR AND IV ACCESS WAS REMOVED AND SON PROVIDED TRANSPORTATION TO THE PATIENT . INSTRUCTIONS PROVIDED TO FOLLOW UP WITH THE PCP AND WHEN TO CALL 911 IN CASE OF EMERGENCY
== END 2022-12-10 08:30 | disposition left against medical advice (07) | DRG 73 ==
LOC: ER 19:49 → TELE 21:37
PROVIDERS: ADMIT Registered Nurse; ATTEND Registered Nurse
DX: G90.8 Other disorders of autonomic nervous system (principal); N17.0 Acute kidney failure with tubular necrosis; E44.1 Mild protein-calorie malnutrition; Z20.822 Contact with and (suspected) exposure to COVID-19; E78.5 Hyperlipidemia, unspecified; Z87.442 Personal history of urinary calculi; F32.A Depression, unspecified; Z79.02 Long term (current) use of antithrombotics/antiplatelets; Z79.82 Long term (current) use of aspirin; Z79.899 Other long term (current) drug therapy; Z86.73 Personal history of transient ischemic attack (TIA), and cerebral infarction without residual deficits; K59.00 Constipation, unspecified; K64.9 Unspecified hemorrhoids; D53.9 Nutritional anemia, unspecified; I12.9 Hypertensive chronic kidney disease with stage 1 through stage 4 chronic kidney disease, or unspecified chronic kidney disease; N18.9 Chronic kidney disease, unspecified; Z87.891 Personal history of nicotine dependence; E88.09 Other disorders of plasma-protein metabolism, not elsewhere classified; G31.84 Mild cognitive impairment of uncertain or unknown etiology; E86.0 Dehydration; M54.50 Low back pain, unspecified
CPT/HCPCS: 36415; 70450-TC; 71045-TC; 72131-TC; 80048-TC; 80061-TC; 80076-TC; 82607-TC; 82962-TC; 83735-TC; 84100-TC; 84443-TC; 84484-TC; 85025-TC; 87081-TC; 93307-TC; 93880-TC; 97112-TC; 97116-TC; 97530-TC; C9803; G0378; J1644; J7120